=== PATIENT | male | born 1995 ===

== ENCOUNTER 2017-10-08 13:03 | Emergency (ER) | payer OTHER ==
[2017-10-08 13:03] VITALS: BMI 19.5
[2017-10-08 14:22] LABS: URINE BACTERIA RARE (<OCC); URINE BILIRUBIN NEGATIVE (NEGATIVE); URINE BLOOD NEGATIVE (NEGATIVE); URINE COLOR Yellow (YELLOW); URINE GLUCOSE (UA) NORMAL (Normal); URINE KETONE NEGATIVE (NEGATIVE); URINE LEUKOCYTE ESTERASE TRACE Leu/uL (Negative); URINE PROTEIN NEGATIVE (NEGATIVE); URINE UROBILINOGEN NORMAL mg/dL (0.2-1.0)
[2017-10-08 14:35] LABS: RBC URINE 2 /hpf (0-3)
--- NOTE | 2017-10-08 14:35 | C.PDOC ---
History Of Present Illness 22 y/o male presents to the ED complaining of dysuria which began three days ago. Patient states that he has associated urinary frequency. He reports that he had high-risk unprotected sexual intercourse and he is worried that he may have been exposed to sexually transmitted diseases. Patient denies any urethral discharge or genital lesions. Of note patient has good compliance with Dr. Luna for weekly visits for cannabis abuse, however he reports using marijuana regularly. Time Seen by Provider: 10/08/17 13:33 Chief Complaint (Nursing): Male Genitourinary History Per: Patient History/Exam Limitations: no limitations Onset/Duration Of Symptoms: Days Current Symptoms Are (Timing): Still Present Past Medical History Reviewed: Historical Data, Nursing Documentation, Vital Signs Vital Signs: Last Vital Signs Temp 97.8 F 10/08/17 13:12 Pulse 63 10/08/17 13:12 Resp 18 10/08/17 13:12 BP 111/62 10/08/17 13:12 Pulse Ox 96 10/08/17 15:00 - Medical History PMH: Asthma Surgical History: Appendectomy (2014) - [facility] Procedures LAPAROSCOP APPENDECTOMY (03/15/13) Family History: States: No Known Family Hx - Social History Hx Alcohol Use: Yes Hx Substance Use: No - Immunization History Hx Tetanus Toxoid Vaccination: No Hx Influenza Vaccination: Yes Hx Pneumococcal Vaccination: No Review Of Systems Except As Marked, All Systems Reviewed And Found Negative. Genitourinary: Positive for: Dysuria, Frequency. Negative for: Incontinence, Penile Discharge Skin: Negative for: Lesions (genital) Physical Exam - Physical Exam Appears: Non-toxic, No Acute Distress Head: Atraumatic, Normacephalic Nose: Normal Oral Mucosa: Moist Neck: Supple Chest: Symmetrical Cardiovascular: Rhythm Regular Respiratory: Normal Breath Sounds Male Genital: Normal Inspection, No Inguinal Swelling (inguinal lymphadenopathy) , Other (no urethral discharge) Neurological/Psych: Oriented x3, Normal Speech, Normal Cognition ED Course And Treatment - Laboratory Results Lab Interpretation: Abnormal (UA cloudy with 8 WBC's) O2 Sat by Pulse Oximetry: 96 (RA) Pulse Ox Interpretation: Normal Progress Note: Rocephin 250 IM and Azithro 1000 mg PO Reevaluation Time: 14:52 Reassessment Condition: Improved Medical Decision Making Medical Decision Making: Impression: Plan: Chlaymadia/ GC Urinalysis Patient has been advised to take albuterol. high risk of STD considering high-risk unprotected exposure about 1 week ago, and few WBC's with dysuria- probably early GC/CHlamycia- empirically treated for FULL treatment in ED, no Rx's given. Disposition Doctor Will See Patient In The: Office Counseled Patient/Family Regarding: Studies Performed, Diagnosis - Disposition Referrals: [facility] [Outside] [facility] [Outside] Disposition: HOME/ ROUTINE Disposition Time: 14:53 Condition: GOOD Additional Instructions: your Urine sample for GC/Chlamydia is PENDING But you were given the FULL treatment w Rocephin 250 mg IM and Azithromycin 1000 mg PO No further antibiotics needed at this time. Please follow-up @ our [facility] for further STD evaluations. Instructions: Chlamydia (ED), Sexually Transmitted Diseases (ED), Safe Sex (ED) Forms: [employer] (Kittitian) - Clinical Impression Clinical Impression: Dysuria, STD (male) - Scribe Statement The provider has reviewed the documentation as recorded by the Robbi Freeman Provider Attestation: All medical record entries made by the Jackieibe were at my direction and personally dictated by me. I have reviewed the chart and agree that the record accurately reflects my personal performance of the history, physical exam, medical decision making, and the department course for this patient. I have also personally directed, reviewed, and agree with the discharge instructions and disposition.
[2017-10-08 14:36] LABS: WBC URINE 8 /hpf (0-5)
[2017-10-08] MEDS ORDERED: cefTRIAXone (Rocephin) 250 mg Inj IM STA (14:51)
[2017-10-08 15:15] VITALS: BP 107/75; PULSE 64; RESP 16; TEMP 98.1; O2SAT 100
== END 2017-10-08 15:18 | disposition home or self-care (01) ==
LOC: C.ER 13:03
DX: R30.0 Dysuria (principal); A64 Unspecified sexually transmitted disease
CPT/HCPCS: 81001; 87491; 87591; 96372; 99284; J0696

== ENCOUNTER 2018-04-14 15:48 | Emergency (ER) | payer MEDICAID, OTHER ==
[2018-04-14 15:57] VITALS: BMI 19.9
[2018-04-14 15:59] VITALS: RESP 18
[2018-04-14 17:09] VITALS: BP 119/78; PULSE 60; TEMP 98.6; O2SAT 98
--- NOTE | 2018-04-14 18:03 | RAD ---
PROCEDURE: Left Index finger radiographs. HISTORY: r/o fx COMPARISON: None. TECHNIQUE: AP radiograph of the left hand, as well as spot oblique and lateral images of index finger were obtained. FINDINGS: LEFT INDEX FINGER: No acute fracture. JOINTS: Normal. SOFT TISSUES: Soft tissue swelling surrounding the 2nd proximal interphalangeal joint. OTHER FINDINGS: None. IMPRESSION: No demonstrated fracture or dislocation.
--- NOTE | 2018-04-14 18:14 | C.PDOC ---
History Of Present Illness 22 y/o male presents to the ER complaining of swelling to the left index finger which has been present since yesterday. Patient states that he was playing basketball when he jumped for a rebound and the ball struck the point of his finger. Patient reports that he has slight decrease in ROM in his finger. Denies having weakness and numbness. Of note, patient is right-handed. Chief Complaint (Nursing): Finger,Hand,&Wrist History Per: Patient History/Exam Limitations: no limitations Onset/Duration Of Symptoms: Days Current Symptoms Are (Timing): Still Present Severity: Moderate Past Medical History Reviewed: Historical Data, Nursing Documentation, Vital Signs Vital Signs: Last Vital Signs Temp 98.6 F 04/14/18 17:08 Pulse 60 04/14/18 17:08 Resp 18 04/14/18 17:08 BP 119/78 04/14/18 17:08 Pulse Ox 98 04/14/18 19:36 - Medical History PMH: Asthma Surgical History: Appendectomy (2014) - [facility] Procedures LAPAROSCOP APPENDECTOMY (03/15/13) Family History: States: No Known Family Hx - Social History Hx Alcohol Use: Yes Hx Substance Use: No - Immunization History Hx Tetanus Toxoid Vaccination: No Hx Influenza Vaccination: Yes Hx Pneumococcal Vaccination: No Review Of Systems Except As Marked, All Systems Reviewed And Found Negative. Skin: Positive for: Other (swelling to left index finger) Neurological: Negative for: Weakness, Numbness Physical Exam - Physical Exam Appears: Non-toxic, No Acute Distress Skin: Normal Color, Warm, Dry Head: Atraumatic, Normacephalic Eye(s): bilateral: Normal Inspection Nose: Normal Oral Mucosa: Moist Neck: Supple Chest: Symmetrical Cardiovascular: Rhythm Regular Respiratory: Normal Breath Sounds, No Rales, No Rhonchi, No Wheezing Extremity: No Normal ROM (slight decrease in ROM in left index finger'), No Tenderness, Capillary Refill (< 2 seconds), Swelling (swelling in left index finger) Pulses: Left Radial: Normal Neurological/Psych: Oriented x3, Normal Speech ED Course And Treatment O2 Sat by Pulse Oximetry: 98 (RA) Pulse Ox Interpretation: Normal - Other Rad X-Ray- Left Hand 2nd Digit X-Ray: Viewed By Me, Read By Radiologist Interpretation: PROCEDURE: Left Index finger radiographs. HISTORY: r/o fx. COMPARISON: None. TECHNIQUE: AP radiograph of the left hand, as well as spot oblique and lateral images of index finger were obtained. FINDINGS: LEFT INDEX FINGER: No acute fracture. JOINTS: Normal. SOFT TISSUES: Soft tissue swelling surrounding the 2nd proximal interphalangeal joint. OTHER FINDINGS: None. IMPRESSION: No demonstrated fracture or dislocation. Medical Decision Making Medical Decision Making: Plan: --Left Hand - 2nd Digit Updates: X-Ray Left Hand- 2nd Digit is negative for fracture. Splint has applied to finger by account technician. Patient has been discharged and instructed to follow up in clinic in 3-4 days. Disposition - Disposition Referrals: [facility] [Outside] [facility] [Outside] Disposition: HOME/ ROUTINE Disposition Time: 16:50 Condition: GOOD Additional Instructions: KAI CAGLE, thank you for letting us take care of you today. Your provider was Kristofer Roblero DO and you were treated for LT FINGER PAIN. The emergency medical care you received today was directed at your acute symptoms. If you were prescribed any medication, please fill it and take as directed. It may take several days for your symptoms to resolve. Return to the Emergency Department if your symptoms worsen, do not improve, or if you have any other problems. Please contact your doctor or call one of the physicians/clinics you have been referred to that are listed on the Patient Visit Information form that is included in your discharge packet. Bring any paperwork you were given at discharge with you along with any medications you are taking to your follow up visit. Our treatment cannot replace ongoing medical care by a primary care provider outside of the emergency department. Thank you for allowing the [facility] team to be part of your care today. Follow up with the clinic in 3-4 days for re-evaluation and further management. Prescriptions: Ibuprofen [Motrin] 600 mg PO Q6 PRN #20 tab PRN Reason: Pain, Moderate (4-7) Instructions: Finger Sprain (DC) Forms: [employer] (Slovenian) - Clinical Impression Clinical Impression: Finger sprain - Scribe Statement The provider has reviewed the documentation as recorded by the Scribe Malika Freeman Provider Attestation: All medical record entries made by the Scribe were at my direction and personally dictated by me. I have reviewed the chart and agree that the record accurately reflects my personal performance of the history, physical exam, medical decision making, and the department course for this patient. I have also personally directed, reviewed, and agree with the discharge instructions and disposition.
== END 2018-04-14 17:13 | disposition home or self-care (01) ==
LOC: C.ER 15:48
DX: S63.611A Unspecified sprain of left index finger, initial encounter (principal); W21.05XA Struck by basketball, initial encounter; Y92.39 Other specified sports and athletic area as the place of occurrence of the external cause